=== PATIENT | female | born 1980 | race Asian ===

== ENCOUNTER 2023-10-18 10:48 | Emergency (ER) | payer OTHER, SELFPAY ==
[2023-10-18] VITALS (21 sets, daily range): BP systolic 93–151; BP diastolic 49–109; BMI 26.1
[2023-10-18 11:45] LABS: % Basophils 0.6 % (0-2); % Eosinophils 0.9 % (0-6); % Immature Granulocytes 0.4 % (0-0.5); % Lymphocytes 33.4 % (20.5-51.1); % Monocytes 7.2 % (1.7-9.3); % Neutrophils 57.5 % (42.2-75.2); Absolute Eosinophils 0.1 10^3/uL (0-0.7); Absolute Lymphocytes 2.3 10^3/uL (1.2-3.4); Absolute Monocytes 0.5 10^3/uL (0.1-0.6); Absolute Neutrophils 3.9 10^3/uL (1.4-6.5); Hematocrit 23.5 % (37.0-47.0); Mean Corp Hgb Conc. 28.1 g/dL (33.0-37.0); Mean Corpuscular Hgb 16.3 pg (27.0-31.0); Nucleated Red Blood Cells % 0 %; Platelet Count 356 10^3/uL (130-400); Red Blood Cell Count 4.05 10^6/uL (4.20-5.40); Red Cell Dist. Width 21.5 % (11.5-14.5); White Blood Cell Count 6.8 10^3/uL (4.8-10.8)
[2023-10-18 11:47] LABS: Hemoglobin 6.6 g/dL (12.0-16.0)
[2023-10-18 11:57] LABS: ALT (SGPT) < 10 U/L (0-35); AST (SGOT) 18 U/L (14-36); Albumin 4.4 g/dl (3.5-5.0); Alkaline Phosphatase 65 U/L (38-126); Blood Urea Nitrogen 10 mg/dl (7-17); Calcium 9.5 mg/dl (8.4-10.2); Carbon Dioxide 23 mmol/L (22-30); Chloride 107 mmol/L (98-107); Estimated Creatinine Clearance 98 ml/min; Glucose 111 mg/dl (70-99); Potassium 3.8 mmol/L (3.5-5.1); Sodium 140 mmol/L (135-145); Total Bilirubin 0.3 mg/dl (0.2-1.3); Total Protein 7.3 g/dl (6.3-8.2); eGFR > 60.00
[2023-10-18 12:02] LABS: HCG, Serum Qualitative Screen Negative
[2023-10-18 12:22] LABS: Anisocytosis 1+; Hypochromasia 2+; Normal RBC Morphology No; Polychromasia 1+
--- NOTE | 2023-10-18 12:54 | ED.GENMED ---
Addendum entered and electronically signed by James Mays Jr., PA-C 10/18/23 14:34:
Patient initially was admitted however she claims that currently she is asymptomatic would like to go home after receiving her unit of blood and will follow-up closely with hematology GI as well as her qc manager. It was discussed thoroughly at
the potential risk of that she understood and will follow-up closely return for any worsening.
Original Note:
History of Present Illness
General
Chief Complaint: Abnormal Lab Value
Source: patient
Exam Limitations: none
Time Seen by Provider: 10/18/23 11:09
Nursing documentation reviewed up to this point in time: agreed with
Travel History
Have you had any contact with someone who has COVID-19?: No
Do you have any symptoms of coronavirus? Fever > 100 degrees, chills, cough, shortness of breath, sore throat, loss of taste or smell, muscle aches, or headache?: No
History of Present Illness
History of Present Illness:
43-year-old female without significant past medical history presenting to the emergency department today with concerns of low hemoglobin that was drawn by the outpatient lab by the primary care doctor. She claims that she does have heavy menstrual
cycles lasting days at a time and are fairly heavy. She does not currently take any iron supplementation. Has had some fatigue when questioned further but denies any chest pain significant shortness of breath or obvious exercise tolerance
decreased. Denies any obvious GI bleeding but does have heavy periods. Currently is menstruating
Review of Systems
Review of Systems
Allergies reviewed?: Yes
All Other Systems: ROS reviewed and negative except as documented in HPI and ROS
Phy Exam
Physical Exam
Physical Exam:
GENERAL: Alert , in no apparent distress
EYE: pupils equal and reactive
NECK: Supple, no significant adenopathy.
ENT: o/p clr, mmm.
CARDIAC: Regular rate and rhythm .
LUNGS: Clear breath sounds bilaterally, no acute respiratory distress, no wheezes/rales/rhonchi
ABDOMEN: Soft, without focal tenderness, no r/g, no cvat
NEUROLOGICAL: Alert and oriented, no focal neuro deficits
SKIN: Warm and dry, skin intact.
MUSCULOSKELETAL: No edema, well perfused.
PSYCH: Normal and appropriate interaction.
Additional examination performed by Talia Valiente per patient's request for female provider. The stool was brown in color but guaiac positive.
Course
Orders/Labs/Results
Orders:
Orders
10/18/23 11:29
Type+Screen Urgent
CBC/With Diff [Complete Blood Count/With Diff] Urgent
CMP [Comprehensive Metabolic Panel] Urgent
Ferritin Urgent
Comment: ADD ON
Folate Urgent
Comment: ADD ON
HCG, Serum Qualitative Screen Urgent
Comment: ADD ON
Iron Urgent
Comment: ADD ON
Total Iron Binding Urgent
Comment: ADD ON
Vitamin B12 Urgent
Comment: ADD ON
10/18/23 11:41
Add On- LAB Urgent
Tests Added?: HCG
10/18/23 12:28
* Blood Bank Products Urgent
Blood Bank Products: *Packed RBC Leuko(PRBC's)
Quantity: 1
Transfuse Today: Yes
Reason: Anemia
10/18/23 13:35
Add On- LAB Urgent
Tests Added?: ferritin, folate, iron, TIBC, vitamin B12
Abnormal Lab Results
10/18/23
11:29
RBC 4.05 L 10^6/uL
(4.20-5.40)
Hgb 6.6 L* g/dL
(12.0-16.0)
Hct 23.5 L %
(37.0-47.0)
MCV 58.0 L fL
(81.0-99.0)
MCH 16.3 L pg
(27.0-31.0)
MCHC 28.1 L g/dL
(33.0-37.0)
RDW 21.5 H %
(11.5-14.5)
Creatinine 0.5 L mg/dL
(0.6-1.0)
Glucose 111 H mg/dl
(70-99)
Crossmatch IS Only See Detail
10/18/23 11:29
10/18/23 11:29
Vital Signs
Initial and Last Documented VS:
Initial Vital Signs
Temp Pulse Resp BP Pulse Ox
97.9 F 101 17 151/109 99
10/18/23 11:06 10/18/23 11:06 10/18/23 11:06 10/18/23 11:06 10/18/23 11:06
Last Documented Vital Signs
Temp Pulse Resp BP Pulse Ox
98.7 F 84 20 122/75 100
10/18/23 13:42 10/18/23 13:42 10/18/23 13:42 10/18/23 13:42 10/18/23 13:42
MDM/Problems Addressed
MDM/Problems Addressed:
43-year-old female presenting to the emergency department today with concerns of low hemoglobin drawn as an outpatient. 6.6 as an outpatient mildly tachycardic upon arrival patient currently menstruating also has guaiac positive stool plan to admit
for further treatment unit of blood and reassessment.
*Critical Care Note
Total Time (30-74mins, 75-104mins- exclusive of procedures): Not Applicable
ED Attending Note
-
Portions of this chart may have been created with voice recognition software.� Occasional wrong word or��sound alike� substitutions may have occurred due to the inherent limitations of voice recognition software.
Discharge Plan
Departure
Patient Disposition: Admit
Date of Disposition: 10/18/23
Time of Disposition: 14:05
Admit to: Med/Surg
Admit to doctor: Ahmed
Presentation/result/management discussed w/ accepting MD/DO: Hospitalist
Patient with high blood pressure during this ER visit?: No
Condition: Good
Covid-19: Not Applicable
Discharge Problem:
Anemia
Prescriptions:
No Action
Tablet Tab
1 mg PO DAILY
docosahexaenoic acid-epa 1 CAP capsule
1 cap PO DAILY
oxycodone-acetaminophen 5 MG/325 MG tablet
1 - 2 tab PO Q3HPRN PRN (Reason: severe pain) Qty: 30 0RF
ibuprofen 600 MG tablet
600 mg PO Q4HPRN PRN (Reason: moderate pain/cramps) Qty: 0 0RF
Referrals:
Carla Gold MD [Family Provider] -
Interventions
Interventions:
*Risk Screen - Suicide Last Done: 10/18/23 11:37
*General Assessment Last Done: 10/18/23 11:37
*Neglect/Abuse Screening Last Done: 10/18/23 11:37
ED- Fall Risk Assessment Last Done: 10/18/23 11:37
*ED COVID-19 Vaccine History Last Done: 10/18/23 11:37
Discharge Date and Time
Print Language: URDU
[2023-10-18 14:10] LABS: Iron 24 ug/dl (37-170)
[2023-10-18 14:19] LABS: Reticulocyte Count 1.3 % (0.4-2.8)
[2023-10-18 14:20] LABS: Percent Saturation 4 % (20-50); Total Iron Binding Capacity 505 ug/dl (265-497)
--- NOTE | 2023-10-18 14:21 | CON.HOSP ---
Addendum entered and electronically signed by Yrn Lozano MD 10/18/23 15:35:
Patient seen and examined
Discussed with resident
Discussed with emergency room practitioner
43 years old female with no prior medical history other than chronic anemia presents to the emergency room after outpatient blood work with hemoglobin down to 6.
Patient has chronic anemia she also reports her multiple siblings being anemic
Patient has a prolonged history of heavy menstrual periods. She has no history of gastrointestinal disorders.
She presents to the emergency room with no symptoms of acute blood loss
Hemodynamically stable.
Benign exam.
She has a brown stool guaiac positive likely due to cross-contamination from ongoing menstrual period
Relevant blood work in the emergency room showed hemoglobin of 6.6 with MCV of 58 normal WBC and platelet count
She has normal BUN, normal LFT including bilirubin and transaminases
Impression/plan:
Severe chronic anemia with likely drifting down hemoglobin.
Microcytosis with iron deficiency
MCV of 58, possibly suggestive of underlying hemoglobinopathy. Reticulocyte count 1.3
Patient is hemodynamically stable with no evidence of acute blood loss.
Menorrhagia.
Patient has been transfused with 2 units of packed red blood cells.
She was given an option to stay in the hospital for observation, repeat blood work in the morning and hematology consultation.
She prefers to be discharge and follow-up as outpatient including with hematology as well as CRANE MANAGER.
Suggested folate and iron supplementation as outpatient.
Follow-up with CBC in 1 week.
Follow-up with hematology and CRANE MANAGER as outpatient.
Patient was advised to return back to the emergency room if any symptoms of acute blood loss not limited to syncope, dyspnea, chest pain, excessive bleeding.
Original Note:
Family Physician
-
Family Physician: Carla Gold
Chief Complaint
-
low hemoglobin
History of Present Illness
Estefania Ann, age 43, came to the emergency room on 10-18-23. She was advised to go to the ED when outpatient labs showed hemoglobin <7. In the ED, her hemoglobin was 6.6 with an MCV of 58. She received 2u PRBC in the ED. She notes a history of
heavy menses, but is otherwise asymptomatic. Vitals have remained stable and other blood work has been unremarkable. She does note a positive family history of anemia, and states that she has 'always been anemic'. Never been evaluated for this, and
does not know if there is a known family history of hemoglobinopathy.
Medical History
Past Medical History
Past Medical History: Reports Other (menorrhagia, uterine fibroids)
Past Surgical History: Reports
Social History
Tobacco: Non-smoker
Alcohol: None
Drug: None
Personal:
Living: With Family
Family History
Family History: Other (anemia)
Allergies / Home Medications
Allergies reflects when Allergies were last updated in [facility].
Home Medications with original date entered in [facility]
Allergy/Medication List:
Allergies
Allergy/AdvReac Type Severity Reaction Status Date / Time
No Known Allergies Allergy Unverified 10/18/23 11:05
Home Medications
No Meds [No Current Medications] 10/18/23
Review of Systems
-
History Source: Patient
Constitutional: Reports No Symptoms
EENT: Reports No Symptoms
Respiratory: Reports No Symptoms
Cardiac: Reports No Symptoms
Abdomen/GI: Reports No Symptoms
: Reports Other (heavy menses)
Musculoskeletal: Reports No Symptoms
Skin: Reports No Symptoms
Neurological: Reports No Symptoms
Endocrine: Reports No Symptoms
Hematologic/Lymphatic: Reports No Symptoms
Psych: Reports No Symptoms
Physical Exam
Vital Signs
Vital Signs
Temp Pulse Resp BP Pulse Ox
98.7 F 84 20 122/75 100
10/18/23 13:42 10/18/23 13:42 10/18/23 13:42 10/18/23 13:42 10/18/23 13:42
Physical Exam
General: No Apparent Distress and Comfortable
HEENT: Normocephalic, Anicteric, Moist Mucous Membranes and Atraumatic
Respiratory: Clear and Non Labored Respirations
Cardiac: S1/S2 and Regular Rhythm
Breast: Deferred by me
GI: Soft, Non Tender, Non Distended and No Hepatosplenomegaly
Genito-urinary: No Costovertebral Tend
Musculoskeletal: No Clubbing, No Cyanosis and No Edema
Skin: Warm and Dry
Neuro: Awake, Alert, Oriented and Nonfocal/Grossly Intact
Hematologic/Lymphatic: No Lymphadenopathy
Psych: Calm and Intact Judgement
Laboratory Results
-
Laboratory Results
10/18/23 11:29
10/18/23 11:29
Total Bilirubin 0.3 mg/dl (0.2-1.3) 10/18/23 11:29
AST 18 U/L (14-36) 10/18/23 11:29
ALT < 10 U/L (0-35) 10/18/23 11:29
Alkaline Phosphatase 65 U/L (38-126) 10/18/23 11:29
Impression / Plan
-
Impression
- Chronic anemia
- Microcytic anemia
- Menorrhagia
- History of uterine fibroids
Plan
Chronic anemia
- Down-trending chronically.
- Likely from chronic heavy menses.
- A hemoglobinopathy cannot be ruled out.
- Denies any other overt blood loss, and has no medical complaints.
- No shortness of breath, chest pain, palpitations, lightheadedness, dizziness, headaches, fatigue, malaise or weakness.
- She is hemodynamically stable; she is feeling fine, vitals are stable and other blood work has been unremarkable.
- Discussed management options including overnight observation and inpatient hematology consultation.
- The patient prefers to go home instead and consult hematology and gynecology outpatient.
- Recommended to take oral iron Flnrac-Dthxquqpz-Odnynt.
Microcytic anemia
- MCV 58 on 10-18-23.
- Outpatient evaluation for a possible hemoglobinopathy.
Menorrhagia
- She has not followed up with a batter out since the start of the pandemic.
- Recommended to follow-up for further evaluation.
History of uterine fibroids
- Per above.
Recommendations
* Outpatient gynecology follow-up.
* Outpatient hematology consultation.
* Oral iron [id number]-Qvtbtekur-Cgbfhu.
* Repeat CBC in 1 week before follow-up with primary.
[2023-10-18 16:03] LABS: Ferritin 3.8 ng/ml (6.24-137)
--- NOTE | 2023-10-18 16:33 | ED.GENMED ---
History of Present Illness
General
Chief Complaint: Abnormal Lab Value
Time Seen by Provider: 10/18/23 11:09
Travel History
Have you had any contact with someone who has COVID-19?: No
Do you have any symptoms of coronavirus? Fever > 100 degrees, chills, cough, shortness of breath, sore throat, loss of taste or smell, muscle aches, or headache?: No
Course
Orders/Labs/Results
Orders:
Orders
10/18/23 11:29
Type+Screen Urgent
CBC/With Diff [Complete Blood Count/With Diff] Urgent
CMP [Comprehensive Metabolic Panel] Urgent
Ferritin Urgent
Comment: ADD ON
Folate Urgent
Comment: ADD ON
HCG, Serum Qualitative Screen Urgent
Comment: ADD ON
Iron Urgent
Comment: ADD ON
Reticulocyte Count Urgent
Comment: ADD ON
Total Iron Binding Urgent
Comment: ADD ON
Vitamin B12 Urgent
Comment: ADD ON
10/18/23 11:41
Add On- LAB Urgent
Tests Added?: HCG
10/18/23 12:28
* Blood Bank Products Urgent
Blood Bank Products: *Packed RBC Leuko(PRBC's)
Quantity: 1
Transfuse Today: Yes
Reason: Anemia
10/18/23 13:35
Add On- LAB Urgent
Tests Added?: ferritin, folate, iron, TIBC, vitamin B12
10/18/23 14:03
Code Status As Directed
Resuscitation Status: Full Code
10/18/23 14:08
Add On- LAB Routine
Tests Added?: reticulocyte count to morning pre-transfusion lab; draw if unable
10/18/23 14:11
* Blood Bank Products Urgent
Blood Bank Products: *Packed RBC Leuko(PRBC's)
Quantity: 1
Transfuse Today: Yes
Reason: Anemia
Abnormal Lab Results
10/18/23
11:29
RBC 4.05 L 10^6/uL
(4.20-5.40)
Hgb 6.6 L* g/dL
(12.0-16.0)
Hct 23.5 L %
(37.0-47.0)
MCV 58.0 L fL
(81.0-99.0)
MCH 16.3 L pg
(27.0-31.0)
MCHC 28.1 L g/dL
(33.0-37.0)
RDW 21.5 H %
(11.5-14.5)
Creatinine 0.5 L mg/dL
(0.6-1.0)
Glucose 111 H mg/dl
(70-99)
Iron 24 L ug/dl
(37-170)
TIBC 505 H ug/dl
(265-497)
% Saturation 4 L %
(20-50)
Ferritin 3.8 L ng/ml
(6.24-137)
Vitamin B12 196 L pg/ml
(239-931)
Crossmatch IS Only See Detail
10/18/23 11:29
10/18/23 11:29
Vital Signs
Initial and Last Documented VS:
Initial Vital Signs
Temp Pulse Resp BP Pulse Ox
97.9 F 101 17 151/109 99
10/18/23 11:06 10/18/23 11:06 10/18/23 11:06 10/18/23 11:06 10/18/23 11:06
Last Documented Vital Signs
Temp Pulse Resp BP Pulse Ox
98.4 F 71 20 136/93 100
10/18/23 16:59 10/18/23 16:59 10/18/23 16:59 10/18/23 16:59 10/18/23 16:59
ED Attending Note
-
Portions of this chart may have been created with voice recognition software.� Occasional wrong word or��sound alike� substitutions may have occurred due to the inherent limitations of voice recognition software.
Discharge Plan
Departure
Patient Disposition: Home (Routine Discharge)
Date of Disposition: 10/18/23
Time of Disposition: 16:33
Patient with high blood pressure during this ER visit?: No
Condition: Good
Covid-19: Not Applicable
Discharge Problem:
Anemia
Instructions: Anemia caused by low iron in adults - Discharge instructions
Prescriptions:
New
ferrous sulfate 325 mg (65 mg iron) tablet
325 mg PO BID 14 Days Qty: 28 0RF
Referrals:
Karissa Carbajal MD [Active] - Follow up in 1 week
Ermias Hart DO [Active] - Follow up in 10 days
Carla Gold MD [Family Provider] -
Shelley Jefferson MD [Active] - Follow up in 10 days
Activity Restrictions/Additional Instructions:
You came to the emergency department today with concerns of anemia. This is likely second to heavy menstrual cycles however it is very important follow-up with hematology as well as gynecology as well as GI for further assessment. Return for any
worsening symptoms. Please take iron daily as well. Return to the emergency department for any worsening, new or concerning symptoms.
Interventions
Interventions:
*Risk Screen - Suicide Last Done: 10/18/23 11:37
*General Assessment Last Done: 10/18/23 11:37
*Neglect/Abuse Screening Last Done: 10/18/23 11:37
ED- Fall Risk Assessment Last Done: 10/18/23 11:37
*ED COVID-19 Vaccine History Last Done: 10/18/23 11:37
*Nursing Disposition Last Done: 10/18/23 17:09
Discharge Date and Time
Discharge Date/Time: 10/18/23 17:11
Print Language: MONTENEGRIN
[2023-10-18 16:35] LABS: Folate 4.6 ng/ml (2.76-20); Vitamin B12 196 pg/ml (239-931)
== END 2023-10-18 17:11 | disposition home or self-care (01) ==
LOC: EMR 10:48
PROVIDERS: EMERGENCY PHYSICIAN Emergency Medicine; FAMILY PHYSICIAN Internal Medicine; OTHER PHYSICIAN Internal Medicine
DX: D64.9 Anemia, unspecified (principal)
CPT/HCPCS: 99285; 36430; 80053; 82607; 82728; 82746; 83540; 83550; 84703; 85025; 85045; 86850; 86900; 86901; 86920; P9016